=== PATIENT | male | born 1980 | race Caucasian/White ===

== ENCOUNTER 2017-03-15 20:36 | Emergency (ER) | payer OTHER ==
--- NOTE | 2017-03-15 21:47 | EDM.PDOC ---
<Rosemarie Zaidi - Last Filed: 03/15/17 22:43> ED HPI GENERAL MEDICAL PROBLEM - General Chief Complaint: Gastrointestinal Problem Stated Complaint: VOMITING,RASH, BREATHING IN DUST Time Seen by Provider: 03/15/17 21:10 Source of Information: Reports: Patient History Limitations: Reports: No Limitations - History of Present Illness INITIAL COMMENTS - FREE TEXT/NARRATIVE: HISTORY AND PHYSICAL: History of present illness: [Patient comes to the emergency room complaining of 4-5 days of chest congestion and shortness of breath. Over the past 2 days he developed nausea and vomiting and has continued cough. 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 He wears a respirator but feels that it is not keeping the particles. He thinks that his symptoms may be related to his work. He has not had fever or chills. No earaches or runny nose. His throat has felt sore and irritated. No face pain or neck pain. Denies chest pain. He feels that his chest is tight and that it is difficult to take a deep breath. No wheezing or sputum production. Has had 5-6 episodes of vomiting over the past couple of days. No blood in his emesis. No constipation or diarrhea. Denies joint pain and muscle aches. No burning with urination or hematuria. States that he is otherwise healthy. Does not take medications regularly. Does not smoke or drink alcohol. As had to miss the last 2 days of work due to his symptoms.] Review of systems: As per history of present illness and below otherwise all systems reviewed and negative. Past medical history: As per history of present illness and as reviewed below otherwise noncontributory. Surgical history: As per history of present illness and as reviewed below otherwise noncontributory. Social history: No reported history of drug or alcohol abuse. Family history: As per history of present illness and as reviewed below otherwise noncontributory. Physical exam: HEENT: Atraumatic, normocephalic. TMs are pearly vergara and without effusion bilaterally. Oral mucous membranes are pink and moist. Mild postnasal drainage present. No tonsillar swelling erythema or exudate. neck supple, nontender, no lymphadenopathy. Lungs: Clear to auscultation, breath sounds equal bilaterally. No wheezing crackles or rales. Heart: S1S2, regular regular rate rhythm., negative for clicks, rubs, or murmur. Abdomen: Soft, nondistended. Generalized discomfort with palpation. Negative for masses guarding or rebound. Negative for costovertebral tenderness. Genitourinary: Deferred. Rectal: Deferred. Extremities: Atraumatic, no pain with palpation. Neurovascular unremarkable. Neuro: Awake, alert, oriented. Exam nonfocal. Diagnostics: [Chest x-ray, CBC, CMP, urinalysis] Therapeutics: [] Impression: [viral illness] Plan: [Discussed w/ patient that his lab results and chest x-ray are clear. No infection is appreciated. Discussed that he is likely having a viral illness but needs to run its course. [id number] analgesics and cough syrups are recommended. Urged him to establish care with a local PCP in follow-up there for continued concerns. Strict return precautions are reviewed with the patient. He is in agreement with today's plan.] Definitive disposition and diagnosis as appropriate pending reevaluation and review of above. abdominal area Pain Score (Numeric/FACES): 6 - Related Data Allergies Allergy/AdvReac Type Severity Reaction Status Date / Time rojas pepper Allergy Hives Uncoded 03/15/17 21:15 Home Meds: Home Meds Multivitamin [Multivitamins] 1 each PO DAILY 03/15/17 [History] Past Medical History HEENT History: Reports: None Cardiovascular History: Reports: None Respiratory History: Reports: None Gastrointestinal History: Reports: None Genitourinary History: Reports: None Musculoskeletal History: Reports: None Neurological History: Reports: None Psychiatric History: Reports: None Endocrine/Metabolic History: Reports: None Hematologic History: Reports: None Immunologic History: Reports: None Oncologic (Cancer) History: Reports: None Dermatologic History: Reports: None - Infectious Disease History Infectious Disease History: Reports: Chicken Pox - Past Surgical History Head Surgeries/Procedures: Reports: None HEENT Surgical History: Reports: Oral Surgery Social & Family History - Family History Family Medical History: Noncontributory - Tobacco Use Smoking Status *Q: Never Smoker - Caffeine Use Caffeine Use: Reports: Soda - Recreational Drug Use Recreational Drug Use: No ED ROS GENERAL - Review of Systems Review Of Systems: ROS reveals no pertinent complaints other than HPI. ED EXAM, GI/ABD - Physical Exam Exam: See Below Course - Vital Signs Last Recorded V/S: Last Vital Signs Temp 36.9 C 03/15/17 20:57 Pulse 79 03/15/17 20:57 Resp 20 03/15/17 20:57 BP 151/72 H 03/15/17 20:57 Pulse Ox 97 03/15/17 20:57 - Orders/Labs/Meds Orders: Active Orders 24 hr Category Date Time Status Chest 2V [CR] Stat Exams 03/15/17 21:24 Taken Labs: Laboratory Tests 03/15/17 03/15/17 03/15/17 Range/Units 21:27 21:32 21:32 WBC 10.26 (4.0-11.0) K/uL RBC 5.39 (4.50-5.90) M/uL Hgb 15.3 (13.0-17.0) g/dL Hct 46.3 (38.0-50.0) % MCV 85.9 (80.0-98.0) fL MCH 28.4 (27.0-32.0) pg MCHC 33.0 (31.0-37.0) g/dL RDW Std Deviation 42.6 (28.0-62.0) fl RDW Coeff of Luisa 14 (11.0-15.0) % Plt Count 263 (150-400) K/uL MPV 10.00 (7.40-12.00) fL Neut % (Auto) 61.3 (48.0-80.0) % Lymph % (Auto) 28.8 (16.0-40.0) % [place] % (Auto) 7.0 (0.0-15.0) % Eos % (Auto) 2.7 (0.0-7.0) % Baso % (Auto) 0.2 (0.0-1.5) % Neut # (Auto) 6.3 H (1.4-5.7) K/uL Lymph # (Auto) 3.0 H (0.6-2.4) K/uL [place] # (Auto) 0.7 (0.0-0.8) K/uL Eos # (Auto) 0.3 (0.0-0.7) K/uL Baso # (Auto) 0.0 (0.0-0.1) K/uL Nucleated RBC % 0.0 /100WBC Nucleated RBCs # 0 K/uL Sodium 142 (136-146) mmol/L Potassium 3.6 (3.5-5.1) mmol/L Chloride 109 (98-110) mmol/L Carbon Dioxide 23 (21-31) mmol/L BUN 15 (6.0-23.0) mg/dL Creatinine 0.9 (0.6-1.5) mg/dL Est Cr Clr Drug Dosing 114.56 mL/min Estimated GFR (MDRD) > 60.0 ml/min Glucose 106 (60-110) mg/dL Calcium 8.8 (8.8-10.8) mg/dL Total Bilirubin 0.3 (0.1-1.5) mg/dL AST 24 (5-40) IU/L ALT 21 (8-54) IU/L Alkaline Phosphatase 128 (40-150) Total Protein 7.9 (6.0-8.0) g/dL Albumin 4.2 (3.5-5.0) g/dL Globulin 3.7 H (2.0-3.5) g/dL Albumin/Globulin Ratio 1.1 L (1.3-2.8) Urine Color YELLOW Urine Appearance CLEAR Urine pH 6.0 (5.0-8.0) Ur Specific [place] >= 1.030 (1.001-1.035) Urine Protein NEGATIVE (NEGATIVE) mg/dL Urine Glucose (UA) NEGATIVE (NEGATIVE) mg/dL Urine Ketones TRACE H (NEGATIVE) mg/dL Urine Occult Blood NEGATIVE (NEGATIVE) Urine Nitrite NEGATIVE (NEGATIVE) Urine Bilirubin NEGATIVE (NEGATIVE) Urine Urobilinogen 0.2 (<2.0) EU/dL Ur Leukocyte Esterase NEGATIVE (NEGATIVE) Urine RBC 0-1 (0-2/HPF) Urine WBC 0-3 (0-5/HPF) Ur Epithelial Cells RARE (NONE-FEW) Urine Bacteria RARE (NEGATIVE) Urine Mucus MANY (NONE-MOD) Departure - Departure Disposition: Home, Self-Care 01 Condition: Good Clinical Impression: Acute sinusitis, Bronchitis Clinical Impression: (Ruled Out): Viral illness - Discharge Information Referrals: PCP,None [Primary Care Provider] - Forms: ED Department Discharge Additional Instructions: The following information is given to patients seen in the emergency department who are being discharged to home. This information is to outline your options for follow-up care. We provide all patients seen in our emergency department with a follow-up referral. The need for follow-up, as well as the timing and circumstances, are variable depending upon the specifics of your emergency department visit. If you don't have a primary care physician on staff, we will provide you with a referral. We always advise you to contact your personal physician following an emergency department visit to inform them of the circumstance of the visit and for follow-up with them and/or the need for any referrals to a consulting specialist. The emergency department will also refer you to a specialist when appropriate. This referral assures that you have the opportunity for follow-up care with a specialist. All of these measure are taken in an effort to provide you with optimal care, which includes your follow-up. Under all circumstances we always encourage you to contact your private physician who remains a resource for coordinating your care. When calling for follow-up care, please make the office aware that this follow-up is from your recent emergency room visit. If for any reason you are refused follow-up, please contact the [facility] emergency department at and asked to speak to the emergency department charge nurse. Medication as prescribed Return if symptoms persist or worsen Follow-up with primary care as needed [address] [address] [facility] [address] [place] [id number] Establish care and follow-up with a local primary care provider in the next 48- 72 hours. 2 clinics with phone numbers have been listed above. Call these numbers to schedule an appointment at either clinic. There are diagnosed with a viral illness. Get plenty of rest, push fluids. Tylenol or ibuprofen as needed for discomfort. Robitussin or Delsym cough syrup as needed for cough or chest congestion. Return to ER as needed as discussed. <Edward Olivia - Last Filed: 03/15/17 23:08> ED HPI GENERAL MEDICAL PROBLEM - History of Present Illness INITIAL COMMENTS - FREE TEXT/NARRATIVE: Agree with above history and physical adding that patient did have childhood asthma that he visited once in a while with illness he also currently has a sinus infection sinus tenderness left greater than right maxillary sinuses. Otherwise agree with physical exam Assessment Acute sinusitis/bronchitis Plan Augmentin HFA Return if symptoms persist or worsen Follow-up with primary care as needed Departure - Departure Time of Disposition: 23:07
[2017-03-15 22:03] LABS: CHLORIDE,CL 109 mmol/L (98-110); SODIUM,NA 142 mmol/L (136-146)
[2017-03-15 23:27] VITALS: BP 139/67
--- NOTE | 2017-03-16 13:44 | CR ---
EXAM DATE: 03/15/17 PATIENT'S AGE: 36 Patient: DANIELLE POON Facility: [place], [place] Site . Site : [id number] Study: XRay Chest [id number]/13/2017 10:56:01 PM Ordering Physician: Doctor Flores Final Report: INDICATION: Cough, sob. TECHNIQUE: Chest 2 views. COMPARISON: None. FINDINGS: No pneumothorax or pleural effusion. Lungs are clear. Cardiac and mediastinal contours are within normal limits. Upper abdomen and osseous structures as imaged show no acute abnormality. IMPRESSION: No acute cardiopulmonary disease. Dictated by: Primo Olmedo MD @ 03/15/2017 23:14:57 (Electronic Signature) Report Signed by Proxy. [facility]
== END 2017-03-15 23:27 | disposition home or self-care (01) ==
LOC: MW.ED 20:36
DX: J40 Bronchitis, not specified as acute or chronic (principal); J01.90 Acute sinusitis, unspecified
CPT/HCPCS: 36415; 71020; 71020-26; 80053; 81001; 85025; 99283; 99284